=== PATIENT | female | born 1970 | race African-American/Black ===

== ENCOUNTER 2017-09-10 11:03 | Emergency (ER) | payer MEDICAID ==
[2017-09-10] MEDS: DIPHTH/TET/ACEL PERTUSS (ADULT) 0.5 ML VIAL IM* (11:41)
[2017-09-10] MEDS: AMOXICILLIN/CLAV 500 MG TAB PO (11:51)
== END 2017-09-10 12:10 | disposition home or self-care (01) ==
LOC: FTE 11:03
DX: S81.852A Open bite, left lower leg, initial encounter (principal); W54.0XXA Bitten by dog, initial encounter; Y92.9 Unspecified place or not applicable; Z23 Encounter for immunization
CPT/HCPCS: 90471; 90715; 99283-25